=== PATIENT | female | born 1990 | race Caucasian/White ===

== ENCOUNTER 2025-01-06 08:33 | Observation (INO) | payer BC, OTHER ==
[2025-01-06] MEDS ORDERED: Ondansetron 4 MG Tab.DIS PO PRN (17:09)
[2025-01-06] MEDS ORDERED: Sennosides/Docusate Sodium 50-8.6 MG Tab PO PRN (17:09)
[2025-01-06] MEDS ORDERED: Acetaminophen/HYDROcodone 325-5 MG Tab PO PRN (17:09)
[2025-01-06] MEDS: Acetaminophen 325 MG Tab PO PRN (22:00)
[2025-01-06] MEDS: Melatonin 3 MG Tab PO PRN (22:00)
[2025-01-07 09:20] VITALS: BP 133/95; PULSE 93
== END 2025-01-07 09:15 ==
LOC: JD.ED 08:33 → JD.MS 12:44
PROVIDERS: ADMIT Student in an Organized Health Care Education/Training Program; ATTEND Student in an Organized Health Care Education/Training Program
DX: J93.9 Pneumothorax, unspecified (principal); N80 Endometriosis; Z88.8 Allergy status to other drugs, medicaments and biological substances; Z79.899 Other long term (current) drug therapy
CPT/HCPCS: 71045; 71046; 94761; 99285; A9270; G0378; J3490